=== PATIENT | female | born 1995 | race Caucasian/White ===

== ENCOUNTER 2018-03-05 05:31 | Emergency (ER) | payer OTHER ==
[~2018-03-05] VITALS: Ht 152.4 cm; Wt 65.3 kg
[2018-03-05 05:36] VITALS: Ht 152.4 cm; Wt 65.3 kg
[2018-03-05 07:06] VITALS: BP 118/70
== END 2018-03-05 07:06 | disposition home or self-care (01) ==
LOC: ED 05:31
DX: J45.901 Unspecified asthma with (acute) exacerbation (principal); Z76.0 Encounter for issue of repeat prescription
CPT/HCPCS: J7512; J7613; J7644

== ENCOUNTER 2018-05-20 02:57 | Emergency (ER) | payer OTHER ==
[~2018-05-20] VITALS: Ht 152.4 cm; Wt 68.9 kg
[2018-05-20 03:12] VITALS: Ht 152.4 cm; Wt 68.9 kg
[2018-05-20 04:27] VITALS: BP 114/62
== END 2018-05-20 04:27 | disposition home or self-care (01) ==
LOC: ED 02:57
DX: J45.901 Unspecified asthma with (acute) exacerbation (principal); Z90.89 Acquired absence of other organs
CPT/HCPCS: J7512; J7620

== ENCOUNTER 2018-10-01 23:20 | Emergency (ER) | payer OTHER ==
[~2018-10-01] VITALS: Ht 152.4 cm; Wt 67.1 kg
[2018-10-01 23:26] VITALS: Ht 152.4 cm; Wt 67.1 kg
[2018-10-02 00:27] LABS: BASOPHIL % 0.8 % (0-2); PLATELET COUNT 324 x10^3mcL (130-400); RED CELL DISTRIBUTION WIDTH 12.4 % (11.5-14.5)
[2018-10-02 00:37] LABS: CARBON DIOXIDE 30.1 mmol/L (21-32); CHLORIDE SERUM 106 mmol/L (98-107); CREATININE SERUM 0.7 mg/dL (0.6-1.0); GFR1 > 60 mL/min; GLUCOSE SERUM 93 mg/dL (74-106); POTASSIUM SERUM 3.4 mmol/L (3.5-5.1); SODIUM SERUM 143 mmol/L (136-145)
[2018-10-02 02:06] VITALS: BP 117/87
[2018-10-02 02:19] LABS: AMPHETAMINE QUAL UR NONE DETECTED (See below)
== END 2018-10-02 02:06 | disposition home or self-care (01) ==
LOC: ED 23:20
PROVIDERS: Emergency Medicine
DX: J45.901 Unspecified asthma with (acute) exacerbation (principal); Z90.89 Acquired absence of other organs
CPT/HCPCS: 36415; 87804; J2930; J7613; J7620

== ENCOUNTER 2018-10-21 22:25 | Emergency (ER) | payer OTHER ==
[~2018-10-21] VITALS: Ht 152.4 cm; Wt 67.6 kg
[2018-10-21 22:31] VITALS: BP 121/74; Ht 152.4 cm; Wt 67.6 kg
== END 2018-10-22 01:00 | disposition home or self-care (01) ==
LOC: ED 22:25
DX: J45.901 Unspecified asthma with (acute) exacerbation (principal); Z90.89 Acquired absence of other organs
CPT/HCPCS: J7512; J7613; J7620